=== PATIENT | female | born 1960 | race Caucasian/White ===

== ENCOUNTER 2017-04-17 14:58 | Observation (INO) | payer OTHER ==
[~2017-04-17] VITALS: Ht 162.6 cm; Wt 63.0 kg
[~2017-04-17 14:58] MED LIST: AMOX TR-K CLV1 EAC4 PO; CATAPRES0.1 MG PO; COZAAR25 MG PO; COZAAR50 MG PO; DOXYCYCLINE HY100 MG PO; HYCODAN SYRUP480 ML PO; LEVOTHYROXINE137 MCG PO; PREDNISONE50 MG PO; PROAIR HFA8.5 GM IH; SYNTHROID100 MCG PO; ZESTRIL,PRINIVI20 MG PO
[2017-04-17 15:30] LABS: HEMATOCRIT 41.6 % (36.0-46.0); MCH 29.1 PG (29.0-34.0); MCHC 33.4 G/DL (30.0-36.0); MEAN PLAT.VOLUME 10.3 uM^3 (9.5-12.4); PLATELET COUNT 279 K/uL (156-360); RBC DIS.WIDTH-CV 12.4 % (11.8-14.6); RBC DIS.WIDTH-SD 39.6 % (39-53); RED BLOOD COUNT 4.78 M/uL (3.80-5.20); WHITE BLOOD COUNT 8.6 K/uL (4.1-10.2)
[2017-04-17 15:53] LABS: CHLORIDE 105 mEq/L (99-109); SODIUM 139 mEq/L (136-147)
[2017-04-17 15:55] LABS: GLUCOSE 96 mg/dL (70-99)
[2017-04-17 15:56] LABS: ANION GAP 9 MEQ/L (2-14)
[2017-04-17 15:59] LABS: GFR ESTIMATE (CALCULATED) > 59 mL/min/
[2017-04-17 16:00] LABS: UREA NITROGEN (BUN) 10 mg/dL (9-23)
[2017-04-17 17:49] LABS: ADD MIUA? YES; BILIRUBIN NEGATIVE; BLOOD MODERATE; COLOR STRAW ((YELLOW)); GLUCOSE (STRIP) NEGATIVE; KETONES NEGATIVE; LEUKOCYTES NEGATIVE; NITRITE NEGATIVE; PROTEIN (STRIP) NEGATIVE; UROBILINOGEN 0.2 MG/DL (0.2-1.0)
[2017-04-17 17:57] LABS: BACTERIA RARE /HPF; EPITHELIAL CELLS RARE /HPF; MUCUS TRACE /LPF; UCUL ADDED? NO; WHITE BLOOD CELLS 0-5 /HPF (0-5)
[2017-04-17 17:57] LABS: TROP-I INTERPRETATION NEGATIVE; TROPONIN-I < 0.01 ng/mL (0.0-0.30)
[2017-04-17] MEDS ORDERED: SYNTHROID125 MCG PO (18:59)
[2017-04-17] MEDS ORDERED: TYLENOL EXTRA500 MG PO (19:00)
[2017-04-17 21:47] LABS: Estimated Average Glucose 111 mg/dL (70-123); HEMOGLOBIN A1c (GLYCOHEMOGLOB) 5.5 % HGB (Below 5.7)
[2017-04-17 22:02] LABS: HDL CHOLESTEROL 75 MG/DL (Desirable>=50); LDL CHOLESTEROL 123 mg/dL (Desirable<100); NON-HDL CHOLESTEROL 144 mg/dL (Desirable<160); TOTAL CHOLESTEROL 219 mg/dL (Desirable<200); TRIGLYCERIDES 107 MG/DL (Normal: <150)
[2017-04-17 22:52] VITALS: BP 143/80
[2017-04-18 03:29] VITALS: BP 121/62
[2017-04-18 07:37] VITALS: BP 147/89
[2017-04-18 12:22] VITALS: BP 182/83
[2017-04-18] MEDS ORDERED: PRAVASTATIN SOD40 MG PO (17:21)
[2017-04-18] MEDS ORDERED: LOPRESSOR25 MG PO (17:21)
[2017-04-18] MEDS ORDERED: ASPIRIN EC325 MG PO (17:21)
[2017-04-18] MEDS ORDERED: Vitamin B-12 SL (17:22)
== END 2017-04-18 18:48 | disposition home or self-care (01) ==
LOC: EME 14:58 → EDOF 20:29 → 5WEST 20:29 → EDOF 20:29 → ENRESERV 20:33 → 5WEST 22:49
PROVIDERS: Hospitalist; Nurse Practitioner Family
DX: I63.9 Cerebral infarction, unspecified (principal); I10 Essential (primary) hypertension; E03.9 Hypothyroidism, unspecified; Z82.3 Family history of stroke
CPT/HCPCS: 70450; 70551; 71020; 74000; 80048; 80061; 81003; 82607; 82746; 83036; 84443; 84484; 85027; 93005; 93306; 93880; 99281; 99285; G0378; J1644; J1885; J2405